=== PATIENT | male | born 1965 | race Caucasian/White ===

== ENCOUNTER 2021-10-05 08:59 | Emergency (ER) | payer OTHER ==
[~2021-10-05] VITALS: Ht 185.4 cm; Wt 86.2 kg
--- NOTE | 2021-10-05 09:22 | NUR ---
Dr Haji at the bedside for MSE.
[2021-10-05] MEDS ORDERED: CEPH500C2 PO (09:24)
[2021-10-05] MEDS ORDERED: SULF1TAB47 PO (09:24)
[2021-10-05 09:58] VITALS: BP 158/86
--- NOTE | 2021-10-05 10:02 | NUR ---
Patient discharged to home in stable condition. Written and verbal after care instructions given. Patient verbalizes understanding of instructions. Stressed follow up or return to ER for worsening s/s.
== END 2021-10-05 10:03 | disposition home or self-care (01) ==
LOC: ER 09:03
DX: L02.31 Cutaneous abscess of buttock (principal); L98.8 Other specified disorders of the skin and subcutaneous tissue; Z86.16 Personal history of COVID-19
CPT/HCPCS: A4663